=== PATIENT | female | born 2000 | race African-American/Black ===

== ENCOUNTER 2021-03-05 18:10 | Emergency (ER) | payer OTHER ==
[~2021-03-05] VITALS: Ht 162.6 cm; Wt 58.0 kg
[2021-03-05] MEDS ORDERED: ONDANSETRON HCL 4MG/2ML INJ IV STA (18:49)
[2021-03-05] MEDS ORDERED: SODIUM CHLORIDE 0.9% 1,000 ML IV ONE (19:00)
[2021-03-05 19:57] LABS: BASOPHILS % 0.5 % (0.0-2.0); EOSINOPHILS % 1.4 % (0.0-5.0); HEMATOCRIT. 43.9 % (36.0-48.0); HEMOGLOBIN. 15.7 g/dL (12.0-16.0); LYMPHOCYTES % 26.5 % (20.0-50.0); MEAN CORPUSCULAR HEMOGLOBIN 28.3 pg (28.0-32.0); MEAN PLATELET VOLUME 9.3 fl (7.4-10.4); MONOCYTES % 7.5 % (2.0-8.0); NEUTROPHILS % 64.1 % (40.0-76.0); PLATELET 298 x1000/uL (130-400); RED BLOOD CELL COUNT 5.56 mill/uL (4.2-5.4); RED CELL DISTRIBUTION WIDTH 14.1 % (11.6-14.6)
[2021-03-05 19:59] LABS: CLARITY URINE CLOUDY (CLEAR); COLOR URINE YELLOW (YELLOW); KETONES URINE 2+ (NEGATIVE); LEUKOCYTE ESTERASE URINE NEGATIVE (NEGATIVE); NITRITE URINE NEGATIVE (NEGATIVE); OCCULT BLOOD URINE NEGATIVE (NEGATIVE); PH URINE 5.5 (4.5-8.0); PROTEIN URINE NEGATIVE (NEGATIVE)
[2021-03-05 20:00] LABS: CHLORIDE 100 mEq/L (98-107)
[2021-03-05 20:04] LABS: ETHANOL BLOOD < 10 mg/dL
[2021-03-05 20:05] LABS: PROTHROMBIN TIME 11.2 sec (9.6-11.0)
[2021-03-05 20:06] LABS: HCG SCREEN NEGATIVE
[2021-03-05 20:10] LABS: BETA HYDROXYBUTYRATE 1.3 mMol/L (0.0-0.3)
[2021-03-05] MEDS ORDERED: HUM100IN SQ (21:17)
[2021-03-05 21:23] VITALS: BP 129/84
== END 2021-03-05 21:26 | disposition home or self-care (01) ==
LOC: ER 18:10 → CANBEDREQ 03-06 03:06
DX: E11.65 Type 2 diabetes mellitus with hyperglycemia (principal); E78.00 Pure hypercholesterolemia, unspecified; I10 Essential (primary) hypertension; Z88.0 Allergy status to penicillin
CPT/HCPCS: 36415; 71045; 80053; 80320; 81003; 81025; 82010; 82962; 83605; 83690; 84703; 85025; 85610; 93005; 96361; 96374; 99285; J2405; J7030; G0480

== ENCOUNTER 2021-05-02 10:54 | Emergency (ER) | payer MEDICAID, OTHER ==
[~2021-05-02] VITALS: Ht 165.1 cm; Wt 59.0 kg
[~2021-05-02 10:54] MED LIST: HUM100IN SQ
[2021-05-02 14:35] VITALS: BP 128/79
[2021-05-02 15:22] LABS: CLARITY URINE CLEAR (CLEAR); COLOR URINE YELLOW (YELLOW); KETONES URINE 2+ (NEGATIVE); LEUKOCYTE ESTERASE URINE NEGATIVE (NEGATIVE); NITRITE URINE NEGATIVE (NEGATIVE); OCCULT BLOOD URINE NEGATIVE (NEGATIVE); PROTEIN URINE 1+ (NEGATIVE); SPECIFIC GRAVITY URINE 1.046 (1.005-1.030); UROBILINOGEN URINE 0.2 E.U./dL (0.2-1.0)
[2021-05-02] MEDS ORDERED: AZITHROMYCIN 500 MG TABLET PO ONE (15:30)
[2021-05-02] MEDS ORDERED: CEFTRIAXONE SODIUM 250 MG/VIAL IM ONE (15:30)
[2021-05-02 15:40] LABS: UCG SCREEN NEGATIVE
[2021-05-02] MEDS ORDERED: METR70GE5 VG (16:23)
== END 2021-05-02 16:31 | disposition home or self-care (01) ==
LOC: ER 10:54
DX: N76.0 Acute vaginitis (principal); E11.9 Type 2 diabetes mellitus without complications; Z88.0 Allergy status to penicillin; Z20.2 Contact with and (suspected) exposure to infections with a predominantly sexual mode of transmission
CPT/HCPCS: 81003; 81025; 87210; 96372; 99283; J0696; Z7610